=== PATIENT | female | born 1975 | race Asian ===

== ENCOUNTER → 2018-07-03 | Outpatient (CLI) | payer OTHER | LOC: BMCIMAGING 14:46 | DX: Z12.31 Encounter for screening mammogram for malignant neoplasm of breast (principal) ==

== ENCOUNTER 2019-01-27 17:01 | Emergency (ER) | payer OTHER ==
--- NOTE | 2019-01-27 17:33 | EDPHY ---
H & P Time Seen by Provider: 01/27/19 17:13 HPI/ROS: Chief complaint. Chest pain HPI. Chief complaint. 43-year-old female with 20 min of chest discomfort between 410 and 4:30 p.m. This afternoon. She had left chest discomfort that felt tight with maybe some radiation to the left axilla. Some shortness of breath. She was sitting at her computer. She has had similar symptoms over the past several months. The pain normally lasts 1 min but this time it lasted 20 min. No cough or fever. No unusual leg pain or swelling. No change in her discomfort with exertion or deep breathing. It was better with walking. She tells me it feels still slightly tight and burning and then tells me she has no symptoms now. She has also had discomfort to the right lower rib area for the past several months. She has no high blood pressure or diabetes history. No cardiac history. ROS 10 systems were reviewed and negative with the exception of the elements mentioned in the history of present illness Past Medical/Surgical History: IUD, migraines Social History: , nonsmoker, no alcohol Family history significant for grandfather with an [place] and mom with hypertension Smoking Status: Never smoked Physical Exam: General Appearance: Alert pleasant well-developed female mild distress vital signs are stable Eyes: Pupils equal and round no pallor or injection. ENT, Mouth: Mucous membranes are moist. Respiratory: There are no retractions, lungs are clear to auscultation. Cardiovascular: Regular rate and rhythm. Chest wall tender to palpation Gastrointestinal: Abdomen is soft and nontender, no masses, bowel sounds normal. Neurological: Awake and alert, sensory and motor exams grossly normal. Skin: Warm and dry, no rashes. Musculoskeletal: Neck is supple nontender. Extremities symmetrical, full range of motion. Psychiatric: Patient is oriented X 3, there is no agitation. Constitutional: Initial Vital Signs Temperature (C) 36.5 C 01/27/19 17:08 Heart Rate 58 L 01/27/19 17:08 Respiratory Rate 16 01/27/19 17:08 Blood Pressure 152/87 H 01/27/19 17:08 O2 Sat (%) 92 01/27/19 17:08 O2 Delivery Mode Room Air Allergies/Adverse Reactions: No Known Allergies Allergy (Unverified 01/27/19 17:07) Home Medications: Medication Instructions Recorded Levothyroxine 01/27/19 Medical Decision Making - Diagnostics EKG Interpretation: EKG interpreted by me shows normal sinus rhythm normal interval and axis. QRS is normal there is no significant ST elevation or depression. No arrhythmia. The rate is 51 Repeat EKG unchanged. Heart rate 56 Imaging Results: Imaging Impressions Chest X-Ray 01/27/19 17:32 Impression: Clear lungs. Negative portable chest. Chest x-ray interpreted by me is normal Procedures: IV normal saline, monitor ED Course/Re-evaluation: Re-evaluation 7:05 p.m.. Patient is stable. Continues to have some chest discomfort Repeat troponin is 0 Patient family and I discussed treatment plan including recommendation for admission for continuing chest pain. She does not wish to be admitted and wishes treated as outpatient. We discussed risks and benefits of this. She expresses understanding and agreement and still would like to follow up as an outpatient Differential Diagnosis: Chest pain of unclear etiology. No risk factors for heart disease. I considered pulmonary embolus. No evidence for pneumothorax or pneumonia Heart score-- History-0 EKG-0 Age-1 Risk factors-0 Troponin-0 -total1 - Data Points Laboratory Results: Laboratory Results 01/27/19 17:30 01/27/19 17:30 01/27/19 01/27/19 01/27/19 17:30 17:30 17:30 WBC RBC Hgb Hct MCV MCH MCHC RDW Plt Count MPV Neut % (Auto) Lymph % (Auto) Morrison % (Auto) Eos % (Auto) Baso % (Auto) Nucleat RBC Rel Count Absolute Neuts (auto) Absolute Lymphs (auto) Absolute Monos (auto) Absolute Eos (auto) Absolute Basos (auto) Absolute Nucleated RBC Immature Gran % Immature Gran # D-Dimer 0.40 ug/mLFEU ug/mLFEU (0.00-0.50) Sodium 138 mEq/L mEq/L (135-145) Potassium 4.1 mEq/L mEq/L (3.5-5.2) Chloride 101 mEq/L mEq/L (97-110) Carbon Dioxide 24 mEq/l mEq/l (22-31) Anion Gap 13 mEq/L mEq/L (6-14) BUN 14 mg/dL mg/dL (7-23) Creatinine 0.7 mg/dL mg/dL (0.6-1.0) Estimated GFR > 60 Glucose 107 mg/dL H mg/dL (70-100) Calcium 9.7 mg/dL mg/dL (8.5-10.4) POC Troponin I Beta HCG, Qual NEGATIVE 01/27/19 01/27/19 17:30 17:21 WBC 8.17 10^3/uL 10^3/uL (3.80-9.50) RBC 4.87 10^6/uL 10^6/uL (4.18-5.33) Hgb 14.6 g/dL g/dL (12.6-16.3) Hct 43.5 % % (38.0-47.0) MCV 89.3 fL fL (81.5-99.8) MCH 30.0 pg pg (27.9-34.1) MCHC 33.6 g/dL g/dL (32.4-36.7) RDW 12.8 % % (11.5-15.2) Plt Count 283 10^3/uL 10^3/uL (150-400) MPV 10.8 fL fL (8.7-11.7) Neut % (Auto) 53.0 % % (39.3-74.2) Lymph % (Auto) 39.8 % % (15.0-45.0) Morrison % (Auto) 5.0 % % (4.5-13.0) Eos % (Auto) 1.5 % % (0.6-7.6) Baso % (Auto) 0.6 % % (0.3-1.7) Nucleat RBC Rel Count 0.0 % % (0.0-0.2) Absolute Neuts (auto) 4.33 10^3/uL 10^3/uL (1.70-6.50) Absolute Lymphs (auto) 3.25 10^3/uL H 10^3/uL (1.00-3.00) Absolute Monos (auto) 0.41 10^3/uL 10^3/uL (0.30-0.80) Absolute Eos (auto) 0.12 10^3/uL 10^3/uL (0.03-0.40) Absolute Basos (auto) 0.05 10^3/uL 10^3/uL (0.02-0.10) Absolute Nucleated RBC 0.00 10^3/uL 10^3/uL (0-0.01) Immature Gran % 0.1 % % (0.0-1.1) Immature Gran # 0.01 10^3/uL 10^3/uL (0.00-0.10) D-Dimer Sodium Potassium Chloride Carbon Dioxide Anion Gap BUN Creatinine Estimated GFR Glucose Calcium POC Troponin I 0.00 ng/mL ng/mL (0.00-0.08) Beta HCG, Qual Point of Care Test Results: Chemistry 01/27/19 17:21 POC Troponin I 0.00 ng/mL ng/mL (0.00-0.08) Departure - Departure Disposition: Home, Routine, Self-Care Clinical Impression: Chest pain Qualifiers: Chest pain type: unspecified Qualified Code(s): R07.9 - Chest pain, unspecified Condition: Good Instructions: Chest Pain (ED) Additional Instructions: Ibuprofen 600 mg every 6 hr for discomfort Return for worsening chest discomfort or trouble breathing Call Cardiology tomorrow to have further evaluation Recheck tomorrow in the ER for continuing chest discomfort Referrals: PRANEETH MONSON [Other] - 1 day, if not improved Alessandro Tellez MD [Medical Doctor] - 2-3 days, call for appt.
[2019-01-27 17:57] LABS: PLATELET COUNT 283 10^3/uL (150-400)
[2019-01-27 19:48] VITALS: BP 112/87
--- NOTE | 2019-01-27 21:50 | CPEKG ---
Test Reason : OPEN Blood Pressure : / mmHG Vent. Rate : 051 BPM Atrial Rate : 051 BPM P-R Int : 138 ms QRS Dur : 105 ms QT Int : 464 ms P-R-T Axes : 011 038 014 degrees QTc Int : 428 ms Sinus rhythm Confirmed by Robert Lundberg ([id number]) on 01/27/2019 9:49:43 PM Referred By: ROBERT LUNDBERG Confirmed By:Robert Lundberg
--- NOTE | 2019-01-27 21:50 | CPEKG ---
Test Reason : OPEN Blood Pressure : / mmHG Vent. Rate : 056 BPM Atrial Rate : 056 BPM P-R Int : 137 ms QRS Dur : 109 ms QT Int : 487 ms P-R-T Axes : 014 043 019 degrees QTc Int : [address] elev, probable normal early repol pattern Confirmed by Robert Lundberg ([id number]) on 01/27/2019 9:49:51 PM Referred By: ROBERT LUNDBERG Confirmed By:Robert Lundberg
== END 2019-01-27 19:47 | disposition home or self-care (01) ==
DX: R07.9 Chest pain, unspecified (principal)
CPT/HCPCS: 84484-ER